=== PATIENT | male | born 1950 | race Caucasian/White ===

== ENCOUNTER 2016-07-06 17:22 | Emergency (ER) | payer SELFPAY ==
--- NOTE | 2016-07-06 17:49 | ED.ADGEN ---
Adult General Chief Complaint Chief Complaint " .. I had surgery in .and been follow at ...but I got Bed bugs in my Apt...so I had all my clothes in two bags... I went to pick them up the other day... and made my sciatica flare up..." HPI HPI Patient is a 66 year old male who presents with above hx and complaints of right lumbar sacral muscle tenderness and sciatica. Patient currently followed at [place]. Patient recently underwent MRI which was interpreted by the neurosurgeon. Poorly no findings requiring surgery. Patient has history of chronic sciatic complaints and previous lumbar sacral vertebral compressions. A shunt has undergone two surgical repairs. Patient also had 2 epidural steroid injections. Patient denies any fevers. Patient denies any history cancer. Patient denies any problems with defecation or urination. Review of Systems Review of Systems Constitutional: Denies fever or chills [] Eyes: Denies change in visual acuity, redness, or eye pain [] HENT: Denies nasal congestion or sore throat [] Respiratory: Denies cough or shortness of breath [] Cardiovascular: No additional information not addressed in HPI [] GI: Denies abdominal pain, nausea, vomiting, bloody stools or diarrhea [] : Denies dysuria or hematuria [] Musculoskeletal: Complaints of back pain. Integument: Denies rash or skin lesions [] Neurologic: Denies headache, focal weakness or sensory changes [] Endocrine: Denies polyuria or polydipsia [] Family History Family History Noncontributory Current Medications Current Medications Current Medications Medications (Trade) Dose Ordered Sig/[facility] Start Time Stop Time Status Last Admin Dose Admin Ketorolac Tromethamine (Toradol) 30 mg 1X ONCE 07/06/16 18:15 07/06/16 18:51 DC 07/06/16 18:38 30 MG Methylprednisolone Acetate (Depo-Medrol) 40 mg 1X ONCE 07/06/16 18:15 07/06/16 18:51 DC 07/06/16 18:37 40 MG Allergies Allergies Allergies Coded Allergies Type Severity Reaction Last Updated Verified No Known Drug Allergies 07/06/16 No Physical Exam Physical Exam Constitutional: Mild to moderate distress, non-toxic appearance. [] HENT: Normocephalic, atraumatic, bilateral external ears normal, oropharynx moist, no oral exudates, nose normal. [] Eyes: PERRLA, EOMI, conjunctiva normal, no discharge. [] Neck: Normal range of motion, no tenderness, supple, no stridor. [] Cardiovascular:Heart rate regular rhythm, no murmur [] Lungs & Thorax: Bilateral breath sounds equal at apexes with scattered wheezes Abdomen: Bowel sounds normal, soft, no tenderness, no masses, no pulsatile masses. No saddle loss reported. Patient declines rectal exam at this time. Skin: Warm, dry, no erythema, no rash. [] Back: Right lumbar sacral muscle tenderness, no CVA tenderness. Surgical scar. No midline tenderness. Does have tenderness along the right sciatic nerve. Extremities: No tenderness, no cyanosis, no clubbing, ROM intact, no edema. Straight leg lift on right increases sciatic pain. Arthritic changes. Neurologic: Alert and oriented X 3, normal motor function, normal sensory function, no focal deficits noted. [] Psychologic: Affect normal, judgement normal, mood normal. [] Current Patient Data Vital Signs Vital Signs Date Time Temp Pulse Resp B/P Pulse Ox O2 Delivery O2 Flow Rate FiO2 07/06/16 19:01 76 22 148/72 97 Room Air 07/06/16 17:30 98.5 EKG EKG [] Radiology/Procedures Radiology/Procedures Pt. decline X-ray or CT of spine. [] Course & Med Decision Making Course & Med Decision Making Pertinent Labs and Imaging studies reviewed. (See chart for details). Keep follow-up primary care. Keep follow-up with pediatric and neurosurgeon. Take tylenol and ibuprofen for pain. Take Vicoprofen up 4 x day for pain. Take Flexeril 10 mg up to 3 times a day for muscle spasms. Return if any concerns. Must follow-up primary care. [] Final Impression Final Impression 1. Sciatica[]- Rt. Problems: Dragon Disclaimer Dragon Disclaimer This electronic medical record was generated, in whole or in part, using a voice recognition dictation system. KEESHA CHURCH MD Jul 06, 2016 17:49
[2016-07-06] MEDS ORDERED: CYCL10TA2 PO ×2 (18:14→18:45)
[2016-07-06] MEDS ORDERED: HYDR-79 PO ×2 (18:14→18:45)
[2016-07-06] MEDS ORDERED: methylPREDNISolone ACETATE 40 MG/ML VIAL. IM ONE (18:15)
[2016-07-06] MEDS ORDERED: KETOROLAC 30 MG/ML VIAL. IM ONE (18:15)
[2016-07-06 19:01] VITALS: BP 148/72
== END 2016-07-06 18:50 | disposition home or self-care (01) ==
LOC: ER 17:22
DX: M54.31 Sciatica, right side (principal); M54.5 Low back pain
CPT/HCPCS: 96372; 99284; J1030; J1885